=== PATIENT | male | born 1930 | race Caucasian/White ===

== ENCOUNTER 2019-08-09 11:42 | Emergency (ER) | payer MEDICARE, BC ==
--- NOTE | 2019-08-09 13:13 | EDM.PDOC ---
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, no stents since, denies prior [place], has afib lives alone on farm, never , no children, 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, does snow removal no sob, no n/v, no f/c/d CxR today at [facility], per radiologist Dr Quinn, shows cardiomegaly, questionable HF, patchy infiltrates at bases, rmall R pleural effusion BNP 1423 today, no comparison does have peripheral edema 1st trop 12.2 and wnl CRP <0.02, no fever, WBC 7.1, segs 73.9%, no clinical evidence of infection INR 2.45 on warfarin Treatments DOCUMENTATION MANAGER: Reports: EKG Chest Pain Score (Numeric/FACES): 4 - Related Data Allergies Allergy/AdvReac Type Severity Reaction Status Date / Time No Known Allergies Allergy Verified 08/09/19 11:58 Social & Family History - Tobacco Use Smoking Status *Q: Never Smoker - Caffeine Use Caffeine Use: Reports: Coffee - Recreational Drug Use Recreational Drug Use: No ED ROS GENERAL - Review of Systems Review Of Systems: See Below Constitutional: Reports: No Symptoms HEENT: Reports: No Symptoms Respiratory: Reports: No Symptoms, Shortness of Breath Cardiovascular: Reports: Chest Pain Endocrine: Reports: No Symptoms GI/Abdominal: Reports: No Symptoms : Reports: No Symptoms Musculoskeletal: Reports: No Symptoms Skin: Reports: No Symptoms Neurological: Reports: No Symptoms Psychiatric: Reports: No Symptoms Hematologic/Lymphatic: Reports: No Symptoms Immunologic: Reports: No Symptoms ED EXAM, GENERAL - Physical Exam Exam: See Below Exam Limited By: No Limitations General Appearance: Alert, WD/WN, No Apparent Distress Course - Vital Signs Last Recorded V/S: Last Vital Signs Temp 36.6 C 08/09/19 11:42 Pulse 90 08/09/19 11:42 Resp 16 08/09/19 11:42 BP 135/91 H 08/09/19 11:42 Pulse Ox 99 08/09/19 11:42 - Orders/Labs/Meds Orders: Active Orders 24 hr Category Date Time Status URINALYSIS W/MICROSCOPIC [UA W/MICROSCOPIC] [URIN] Stat Lab 08/09/19 11:59 Ordered EKG 12 Lead [EK] Routine Ther 08/09/19 11:59 Ordered Labs: Laboratory Tests 08/09/19 08/09/19 08/09/19 Range/Units 12:00 12:00 12:00 WBC 7.1 (4.5-12.0) X10-3/uL RBC 4.10 L (4.30-5.75) x10(6)uL Hgb 12.6 L (13.5-17.8) g/dL Hct 38.6 (30.0-51.3) % MCV 94.2 (80-96) fL MCH 30.8 (27.7-33.6) pg MCHC 32.7 (32.2-35.4) g/dL RDW 13.9 (11.5-15.5) % Plt Count 185 (125-369) X10(3)uL MPV 8.4 (7.4-10.4) fL Neut % (Auto) 73.9 (46-82) % Lymph % (Auto) 12.2 L (13-37) % [place] % (Auto) 5.9 (4-12) % Eos % (Auto) 4 (1.0-5.0) % Baso % (Auto) 4 H (0-2) % Neut # (Auto) 5.2 (1.6-8.3) # Lymph # (Auto) 0.9 (0.6-5.0) # [place] # (Auto) 0.4 (0.0-1.3) # Eos # (Auto) 0.3 (0.0-0.8) # Baso # (Auto) 0.3 H (0.0-0.2) # PT 22.4 H (9.0-11.1) sec INR 2.45 H (1.00-1.24) Sodium 141 (135-145) mmol/L Potassium 4.4 (3.5-5.3) mmol/L Chloride 103 (100-110) mmol/L Carbon Dioxide 27 (21-32) mmol/L BUN 19 H (7-18) mg/dL Creatinine 1.2 (0.70-1.30) mg/dL Est Cr Clr Drug Dosing TNP Estimated GFR (MDRD) 57 L (>60) BUN/Creatinine Ratio 15.8 (9-20) Glucose 178 H (80-116) mg/dL Calcium 8.8 (8.6-10.2) mg/dL Total Bilirubin 0.7 (0.1-1.3) mg/dL AST 21 (5-25) IU/L ALT 18 (12-36) U/L Alkaline Phosphatase 61 (56-112) IU/L Troponin I (4.0-60.3) pg/mL C-Reactive Protein (0.5-0.9) mg/dL NT-Pro-B Natriuret Pep (<=450) pg/mL Total Protein 8.0 (6.0-8.0) g/dL Albumin 3.8 (2.9-4.5) g/dL Globulin 4.2 g/dL Albumin/Globulin Ratio 0.9 03/16/20 Range/Units 12:00 WBC (4.5-12.0) X10-3/uL RBC (4.30-5.75) x10(6)uL Hgb (13.5-17.8) g/dL Hct (30.0-51.3) % MCV (80-96) fL MCH (27.7-33.6) pg MCHC (32.2-35.4) g/dL RDW (11.5-15.5) % Plt Count (125-369) X10(3)uL MPV (7.4-10.4) fL Neut % (Auto) (46-82) % Lymph % (Auto) (13-37) % [place] % (Auto) (4-12) % Eos % (Auto) (1.0-5.0) % Baso % (Auto) (0-2) % Neut # (Auto) (1.6-8.3) # Lymph # (Auto) (0.6-5.0) # [place] # (Auto) (0.0-1.3) # Eos # (Auto) (0.0-0.8) # Baso # (Auto) (0.0-0.2) # PT (9.0-11.1) sec INR (1.00-1.24) Sodium (135-145) mmol/L Potassium (3.5-5.3) mmol/L Chloride (100-110) mmol/L Carbon Dioxide (21-32) mmol/L BUN (7-18) mg/dL Creatinine (0.70-1.30) mg/dL Est Cr Clr Drug Dosing Estimated GFR (MDRD) (>60) BUN/Creatinine Ratio (9-20) Glucose (80-116) mg/dL Calcium (8.6-10.2) mg/dL Total Bilirubin (0.1-1.3) mg/dL AST (5-25) IU/L ALT (12-36) U/L Alkaline Phosphatase (56-112) IU/L Troponin I 12.2 (4.0-60.3) pg/mL C-Reactive Protein < 0.2 L (0.5-0.9) mg/dL NT-Pro-B Natriuret Pep 1423 H* (<=450) pg/mL Total Protein (6.0-8.0) g/dL Albumin (2.9-4.5) g/dL Globulin g/dL Albumin/Globulin Ratio - Re-Assessments/Exams Free Text/Narrative Re-Assessment/Exam: 08/09/19 13:19 d/w hospitalist Dr Scott who accepted pt in transfer to [facility], agrees Departure - Departure Time of Disposition: 13:06 Disposition: DC/Tfer to [facility] 02 Reason for Transfer *Q: Other Condition: Good Clinical Impression: Exertional angina, Coronary artery disease, Heart failure, Elevated brain natriuretic peptide (BNP) level, Hyperglycemia Referrals: PCP,None [Ordering Only Provider] - Sepsis Event Note - Evaluation Sepsis Screening Result: No Definite Risk - Focused Exam Vital Signs: Vital Signs Temp Pulse Resp BP Pulse Ox 08/09/19 11:42 36.6 C 90 16 135/91 H 99 Date Exam was Performed: 08/09/19 Time Exam was Performed: 13:06 - My Orders Last 24 Hours: My Active Orders 08/09/19 11:59 URINALYSIS W/MICROSCOPIC [UA W/MICROSCOPIC] [URIN] Stat EKG 12 Lead [EK] Routine - Assessment/Plan Last 24 Hours: My Active Orders 08/09/19 11:59 URINALYSIS W/MICROSCOPIC [UA W/MICROSCOPIC] [URIN] Stat EKG 12 Lead [EK] Routine
== END 2019-08-09 14:54 ==
LOC: FB.ED 11:42
DX: I25.119 Atherosclerotic heart disease of native coronary artery with unspecified angina pectoris (principal); I11.0 Hypertensive heart disease with heart failure; I50.9 Heart failure, unspecified; E11.65 Type 2 diabetes mellitus with hyperglycemia; R79.89 Other specified abnormal findings of blood chemistry; Z95.5 Presence of coronary angioplasty implant and graft; Z95.1 Presence of aortocoronary bypass graft
CPT/HCPCS: 36415; 80053; 81001; 83880; 84484; 85025; 85610; 86140; 93005; 99285-25